=== PATIENT | male | born 1970 | race Caucasian/White ===

== ENCOUNTER 2019-11-06 19:57 | Inpatient (IN) ==
--- NOTE | 2019-11-06 21:47 | PROVIDER DOCUMENTATION ---
This chart was entered by Brianne Mendes Scribe, acting as scribe for Bar Harrison CRNP. HPI-Abdominal Pain/GI Problem - History of Present Illness-ABD Nature of Presenting Problems: 49 yom c/o 2 days of "worst heartburn of his life," no abd pain, no abd tenderness no nvd. 2 weeks ago, noticed urine was dark and orange in color and fingernails were turning orange. pt admits to shooting up meth and drinks 2 beers/day. <Bar Harrison - Last Filed: 11/06/19 21:47> <America Rocha - Last Filed: 11/07/19 00:52> - General Chief Complaint: Epigastric Pain Stated Complaint: CHEST PAIN/SOB/ARM NUMBNESS Time Seen by Provider: 11/06/19 20:58 Allergies/Adverse Reactions: Patient Allergies Allergy/AdvReac Type Severity Reaction Status Date / Time Penicillins Allergy Intermediate RASH Verified 06/08/18 19:56 Home Medications: Home Medication List Medication Instructions Recorded Confirmed Last Taken Type NK [No Home Medications] 06/07/18 06/08/18 Unknown History Review of Systems - Adult - REVIEW OF SYSTEMS - ADULT Constitutional: reports: no symptoms reported. denies: fever, fatique, night sweats Eyes: reports: no symptoms reported Ears, Nose, Mouth & Throat: reports: no symptoms reported Cardiovascular: reports: no symptoms reported Respiratory: reports: no symptoms reported Gastrointestinal: reports: see HPI, frequent heartburn. denies: abdominal pain, diarrhea, nausea, vomiting Genitourinary: reports: no symptoms reported Musculoskeletal: reports: no symptoms reported Integumentary: reports: no symptoms reported Neurological: reports: no symptoms reported Psychiatric: reports: no symptoms reported Endocrine: reports: no symptoms reported Hematologic/Lymphatic: reports: no symptoms reported Allergic/Immunologic: reports: no symptoms reported All Other Systems: Reviewed and Negative <Bar Harrison - Last Filed: 11/06/19 21:47> Past History - Adult - PAST MEDICAL HISTORY-ADULT Review of Records: reports: Nursing Assessment Review, Medications Reviewed, Social history reviewed & non-contributory. Major Childhood Illnesses: reports: denies history Cardiovascular: reports: denies history Respiratory: reports: denies history Gastrointestinal: reports: GERD Obstetrical/Gynecological: reports: denies history Genitourinary: reports: denies history Musculoskeletal: reports: denies history Neurological: reports: denies history Endocrine/Immune: reports: denies history Other Conditions: reports: denies history - PRIOR SURGERIES/PROCEDURES Surgical/Procedure History: reports: reviewed, not pertinent - IMMUNIZATION STATUS Childhood Immunizations: See Nurse Assessment Flu Vaccine: See Nurse Assessment - FAMILY HISTORY Family History: reviewed, not pertinent - SOCIAL HISTORY Smoking: cigarettes, greater than 1 pack/day Provider spent 3-5 mins advising pt. on dangers of tobacco.: Discussed manners to quit use, and f/u contacts for add'l counseling. Substance Use: alcohol, marijuana, amphetamines (meth) Alcohol Use Frequency: every day Number of drinks per typical drinking period:: 2 drinks <Bar Harrison - Last Filed: 11/06/19 21:47> Physical Exam-General - PHYSICAL EXAM-ADULT Initial Vital Signs Reviewed: Yes - CONSTITUTIONAL General Appearance: alert, no apparent distress. negative: lethargic, slow to respond, obtunded - EYES Eyes: PERRL/EOMI, scleral icterus. negative: pink conjunctivae, anisocoria, conjuctival exudate - GASTROINTESTINAL (ABDOMEN) Abdominal Exam: distended - MUSCULOSKELETAL Extremity: other (track marino both arms, does use meth) - SKIN Integumentary: normal turgor, warm/dry, jaundice (generalized body). negative: normal color, rash, swelling, tenderness - NEUROLOGIC Neurologic: grossly normal, no motor/sensory deficits - PSYCHIATRIC Psych/Mental Status: normal mood/affect, normal thought content, normal thought process, oriented x 3 <Bar Harrison - Last Filed: 11/06/19 21:47> Progress - PLAN OF CARE/RESULTS Progress/Plan/Lab Results: Vital Signs - 8 hr 11/06/19 19:57 Temperature 98.5 F Pulse Rate 99 H Respiratory Rate 15 Blood Pressure 115/80 O2 Sat by Pulse Oximetry 94 L Orders Category Date Time Status Nursing- Obtain EKG ONCE Care 11/06/19 21:08 Active CHEST-2 VIEWS [RAD] Stat Exams 11/06/19 21:[address] ABD/PELVIS W/IV CONT ONLY [CT] Stat Exams 11/06/19 21:08 Ordered AMMONIA [CHEM] Stat Lab 04/08/20 21:08 Ordered AMYLASE [CHEM] Stat Lab 11/06/19 21:08 Ordered CBC WITH ELECTRONIC DIFF [HEME] Stat Lab 11/06/19 21:08 Ordered COMPREHENSIVE METABOLIC PANEL [CHEM] Stat Lab 11/06/19 21:08 Ordered HEPATITIS PROFILE [HH] Stat Lab 11/06/19 21:08 Ordered LIPASE [CHEM] Stat Lab 11/06/19 21:08 Ordered PROTIME WITH INR [COAG] Stat Lab 11/06/19 21:08 Ordered PTT [COAG] Stat Lab 11/06/19 21:08 Ordered UA Reflex [URINALYSIS W/POSS RFLX CULT] [URINALYSIS] Lab 11/06/19 21:08 Uncollected Stat URINE DRUG SCREEN Stat Lab 11/06/19 21:08 Uncollected EKG [EKG] Stat Ther 11/06/19 21:08 Ordered - EKG 1 Time of EKG reading by physician:: 20:10 EKG Read and Signed by:: America Rocha EKG Interpretation (*Must complete 3 of following elements*): Normal (borderline) Rate: 84 (possible LAE ) Rhythm: NSR [place]illiner: normal QRS: normal [place] Interval: normal ST Wave: normal - CHANGE OF SHIFT REPORT (ED Provider) 1 Report Given and Care Transferred to:: Dr Rocha Time of Transfer: 21:47 Items Pending: Labs, CT/MRI Results <Bar Harrison - Last Filed: 11/06/19 21:47> - PLAN OF CARE/RESULTS Progress/Plan/Lab Results: Vital Signs - 8 hr 11/06/19 19:57 Temperature 98.5 F Pulse Rate 99 H Respiratory Rate 15 Blood Pressure 115/80 O2 Sat by Pulse Oximetry 94 L Laboratory Results - last 24 hr 11/06/19 11/06/19 11/06/19 21:08 21:08 21:08 WBC 7.14 RBC 4.52 L Hgb 13.5 L Hct 41.0 L MCV 90.7 MCH 29.9 MCHC 32.9 L RDW Std Deviation 17.7 H Plt Count 373 MPV 10.5 H Immature Gran % (Auto) 0.0 Neut % (Auto) 42.5 Lymph % (Auto) 38.5 [place] % (Auto) 13.9 H Eos % (Auto) 1.3 Baso % (Auto) 3.8 H Immature Gran # (Auto) 0.00 Neut # (Auto) 3.04 Lymph # (Auto) 2.75 [place] # (Auto) 0.99 H Eos # (Auto) 0.09 Baso # (Auto) 0.27 H PT INR PTT (Actin FS) Sodium 139 Potassium 4.9 Chloride 104 Carbon Dioxide 26 Anion Gap 9 BUN 13 Creatinine 0.9 Estimated GFR/1.73 m2 > 60 BUN/Creatinine Ratio 14 Glucose 74 Calculated Osmolality 276 Calcium 8.1 L Total Bilirubin 5.90 H AST 189 H ALT 583 H Alkaline Phosphatase 317 H Ammonia 31 Total Protein 6.6 Albumin 2.8 L Globulin 3.8 Albumin/Globulin Ratio 0.7 Amylase 48 Lipase 34 Urine Source Urine Color Urine Turbidity Urine pH Ur Specific [place] Urine Protein Ur Glucose (Stick) Ur Ketones (Stick) Urine Blood Urine Nitrite Urine Bilirubin Urobilinogen Dipstick Urine Leukocytes Urine WBC (Auto) Urine RBC (Auto) U Epithel Cells (Auto) Urine Bacteria (Auto) Urine Crystals Small Round Cells Urine Casts Urine Yeast-like Cells Urine Opiates Screen Ur Oxycodone Screen Ur Methadone, Qual Ur Barbiturates Screen Ur Phencyclidine Scrn Ur Amphetamines Screen U Benzodiazepines Scrn Urine Cocaine Screen U Cannabinoids Screen 11/06/19 11/06/19 11/06/19 21:08 22:39 22:39 WBC RBC Hgb Hct MCV MCH MCHC RDW Std Deviation Plt Count MPV Immature Gran % (Auto) Neut % (Auto) Lymph % (Auto) [place] % (Auto) Eos % (Auto) Baso % (Auto) Immature Gran # (Auto) Neut # (Auto) Lymph # (Auto) [place] # (Auto) Eos # (Auto) Baso # (Auto) PT 12.5 INR 0.93 PTT (Actin FS) 29.4 Sodium Potassium Chloride Carbon Dioxide Anion Gap BUN Creatinine Estimated GFR/1.73 m2 BUN/Creatinine Ratio Glucose Calculated Osmolality Calcium Total Bilirubin AST ALT Alkaline Phosphatase Ammonia Total Protein Albumin Globulin Albumin/Globulin Ratio Amylase Lipase Urine Source CLEAN CATCH Urine Color YELLOW Urine Turbidity CLEAR Urine pH 6.5 Ur Specific [place] 1.020 Urine Protein TRACE A Ur Glucose (Stick) NEGATIVE Ur Ketones (Stick) NEGATIVE Urine Blood NEGATIVE Urine Nitrite NEGATIVE Urine Bilirubin MODERATE A Urobilinogen Dipstick 2 A Urine Leukocytes NEGATIVE Urine WBC (Auto) <10 Urine RBC (Auto) <10 U Epithel Cells (Auto) <10 Urine Bacteria (Auto) NEGATIVE Urine Crystals CA OXALATE PRESENT Small Round Cells Not Reportable Urine Casts Not Reportable Urine Yeast-like Cells Not Reportable Urine Opiates Screen NONE DETECTED Ur Oxycodone Screen NONE DETECTED Ur Methadone, Qual NONE DETECTED Ur Barbiturates Screen NONE DETECTED Ur Phencyclidine Scrn NONE DETECTED Ur Amphetamines Screen NONE DETECTED U Benzodiazepines Scrn NONE DETECTED Urine Cocaine Screen NONE DETECTED U Cannabinoids Screen PRESUMPTIVE POSITIVE A Orders Category Date Time Status Nursing- Obtain EKG ONCE Care 11/06/19 21:08 Active CHEST-2 VIEWS [RAD] Stat Exams 11/06/19 21:[address] ABD/PELVIS W/IV CONT ONLY [CT] Stat Exams 11/06/19 22:00 Taken AMMONIA [CHEM] Stat Lab 11/06/19 21:08 Completed AMYLASE [CHEM] Stat Lab 11/06/19 21:08 Completed CBC WITH ELECTRONIC DIFF [HEME] Stat Lab 11/06/19 21:08 Completed COMPREHENSIVE METABOLIC PANEL [CHEM] Stat Lab 11/06/19 21:08 Completed HEPATITIS PROFILE [HH] Stat Lab 11/06/19 21:08 Received LIPASE [CHEM] Stat Lab 11/06/19 21:08 Completed PROTIME WITH INR [COAG] Stat Lab 11/06/19 21:08 Completed PTT [COAG] Stat Lab 11/06/19 21:08 Completed UA Reflex [URINALYSIS W/POSS RFLX CULT] [URINALYSIS] Lab 11/06/19 22:39 Completed Stat URINE DRUG SCREEN Stat Lab 11/06/19 22:39 Completed URINE MANUAL MICROSCOPIC [URINALYSIS] Stat Lab 11/06/19 22:39 Completed EKG [EKG] Stat Ther 11/06/19 21:08 Draft Result Diagrams: 11/06/19 21:08 11/06/19 21:08 - REASSESSMENT Reassessment #1 Time Reassessed: 22:00 Status: other (Assumed care of this patient at shift change. Awaiting labs and dispo.) - CONSULTS/PCP/HOSPITALIST Notification #1 *Consult/PCP/Hospitalist*: Hospitalist Time Discussed: 00:50 Consult Disposition: Admit <America Rocha - Last Filed: 11/07/19 00:52> Departure <Bar Harrison - Last Filed: 11/06/19 21:47> - Departure Date of Disposition Decision: 11/07/19 Time of Disposition Decision: 00:51 Certified Medical Emergency: Emergent - Critical Care Note This patient required my direct & personal management of CC.: No <America Rocha - Last Filed: 11/07/19 00:52> - Departure DIAGNOSIS: Hepatitis, Jaundice Disposition: ADMITTED INPATIENT 09 Condition: Stable Referrals and Follow-Ups: None,PCP [Primary Care Provider] - Attestation - Physician/ HARRIET Attestation Patient care was provided by Advanced Practice Provider:: Yes Advanced Practice Provider:: Bar Harrison Advanced Practice Provider documentation review:: The Mid-level provider documentation, treatment plan and medical decision making was reviewed by the physician who agrees with all treatment and medical decision making by the MLP. The physician spent face to face time with patient:: No Advanced Practice Provider documentation review:: Supervising physician onsite and consulted in the evaluation and care of this patient. The physician did not have a face to face encounter with the patient. <Bar Harrison - Last Filed: 11/06/19 21:47> - Physician/ HARRIET Attestation Patient care was provided by Advanced Practice Provider:: Yes Advanced Practice Provider documentation review:: The Mid-level provider documentation, treatment plan and medical decision making was reviewed by the physician who agrees with all treatment and medical decision making by the MLP. The physician spent face to face time with patient:: Yes Advanced Practice Provider documentation review:: Supervising physician onsite and consulted in the evaluation and care of this patient. The physician did have a face to face encounter with the patient. - Physician/ HARRIET Attestation #2 Advanced Practice Provider documentation review:: Supervising physician onsite and consulted in the evaluation and care of this patient. The physician did have a face to face encounter with the patient. <America Rocha - Last Filed: 11/07/19 00:52> This chart was documented by the indicated scribe, (Brianne Mendes Scribe) and accurately reflects the services I performed and decisions made by , Bar Harrison CRNP, as attested by the provider's signature.
[2019-11-06 22:25] LABS: BASO# 0.27 X1000 (0.0-0.2); BASO% 3.8 % (0.0-0.8); EOS# 0.09 X1000 (0.0-0.7); EOS% 1.3 % (0.0-10.0); HEMOGLOBIN 13.5 g/dL (14.0-18.0); LYMPH# 2.75 X1000 (1.2-3.4); LYMPH% 38.5 % (20.5-51.1); MCH 29.9 PG (27-31); MCHC 32.9 g/dL (33-37); MCV 90.7 FL (81-99); MONO# 0.99 X1000 (0.11-0.59); MONO% 13.9 % (1.7-9.3); MPV 10.5 FL (7.4-10.4); NEUT# 3.04 X1000 (1.4-6.5); NEUT% 42.5 % (42.2-75.2); PLT 373 X1000 (130-400); RBC 4.52 XMIL (4.7-6.1); RDW 17.7 % (11.5-14.5); WBC 7.14 X1000 (4.8-10.8)
[2019-11-06 22:27] LABS: INR 0.93; PROTIME 12.5 Seconds (11.0-16.0)
[2019-11-06 22:28] LABS: PTT 29.4 Seconds (22.3-41.8)
[2019-11-06 22:48] LABS: AGAP 9; ALB/GLOB RATIO 0.7; ALBUMIN 2.8 g/dL (3.5-5.0); ALKALINE PHOSPHATASE 317 U/L (32-122); AMYLASE 48 U/L (20-200); BUN 13 mg/dL (8-22); CALCIUM 8.1 mg/dL (8.8-10.2); CHLORIDE 104 mmol/L (98-107); COSMO 276; CREATININE 0.9 mg/dL (0.7-1.2); ESTIMATED GFR > 60; GLUCOSE 74 mg/dL (70-104); GOT 189 U/L (10-34); GPT 583 U/L (10-44); LIPASE 34 U/L (13-60); POTASSIUM 4.9 mmol/L (3.5-5.1); SODIUM 139 mmol/L (136-145); TCO2 26 mmol/L (25-35); TOTAL PROTEIN 6.6 g/dL (6.3-8.3)
[2019-11-06 23:14] LABS: URINE SOURCE CLEAN CATCH
[2019-11-06 23:18] LABS: BILIRUBIN URINE MODERATE (NEGATIVE); BLOOD URINE NEGATIVE (NEGATIVE); COLOR YELLOW; GLUCOSE URINE NEGATIVE (NEGATIVE); KETONE URINE NEGATIVE (NEGATIVE); LEUKOCYTES URINE NEGATIVE (NEGATIVE); NITRITE URINE NEGATIVE (NEGATIVE); PH URINE 6.5; PROTEIN URINE TRACE mg/dL (NEGATIVE); TURBIDITY URINE CLEAR (CLEAR); UROBILINOGEN URINE 2 mg/dL (NORMAL)
--- NOTE | 2019-11-06 23:20 | EKG Report ---
Test Performed on : 11/06/2019 8:05:47 PM Test Reason : CP Blood Pressure : / mmHG Vent. Rate : 084 BPM Atrial Rate : 084 BPM P-R Int : 130 ms QRS Dur : 088 ms QT Int : 364 ms P-R-T Axes : 067 053 038 degrees QTc Int : 430 ms Normal sinus rhythm. Possible Left atrial enlargement Borderline ECG When compared with ECG of 06-DEC-2017 14:36, No significant change was found Unconfirmed Result
[2019-11-06 23:21] LABS: UR EPITHELIAL CELLS <10 /HPF (<10); URINE BACTERIA NEGATIVE /HPF; URINE RBC <10 /HPF (<10); URINE WBC <10 /HPF (<10)
[2019-11-06 23:33] LABS: URINE CRYSTALS CA OXALATE PRESENT
[2019-11-07 00:08] LABS: UR AMPHETAMINES QUAL NONE DETECTED (NONE DETECT); UR BARBITUATES QUAL NONE DETECTED (NONE DETECT); UR BENZODIAZEPIN QUAL NONE DETECTED (NONE DETECT); UR CANNABINOIDS QUAL PRESUMPTIVE POSITIVE (NONE DETECT); UR COCAINE QUAL NONE DETECTED (NONE DETECT); UR METHADONE QUAL NONE DETECTED (NONE DETECT); UR OPIATES QUAL NONE DETECTED (NONE DETECT); UR OXYCODONE QUAL NONE DETECTED (NONE DETECT); UR PCP QUAL NONE DETECTED (NONE DETECT)
[2019-11-07] MEDS ORDERED: SODIUM CHLORIDE 0.9% INJ PRN (03:52)
[2019-11-07] MEDS ORDERED: NS 1,000 ML IV SCH (03:52)
[2019-11-07] MEDS ORDERED: PHENERGAN IV PRN (03:52)
[2019-11-07] MEDS: LOVENOX SUBQ SCH (04:36)
--- NOTE | 2019-11-07 05:36 | HISTORY AND PHYSICAL ---
CHIEF COMPLAINT: Heartburn of 3 days duration. HISTORY OF PRESENTING COMPLAINT: The patient is a 49-year-old male with no known past medical history, who presented with heartburn of 3 days duration. The patient describes heartburn, which has worsened over the last 3 days. He says the heartburn is like a burning sensation in the epigastric and left upper quadrant area of the abdomen. It is worse without food and he gets relief of the pain with food. It is nonradiating and nonpleuritic pain. He denies any fever, nausea, vomiting. Denies any diarrhea or constipation. Denies any urinary symptoms. The patient states he did not know that he has yellowness of the skin and of his eyes, although this was evident on seeing the patient in the examination room. Of note, patient states he does use IV drugs. He uses IV methamphetamine and occasionally he also smokes methamphetamine as well. His last IV methamphetamine use was like 2 weeks ago. He denies sharing of needles despite his history of IV drug use. He denies any previous liver problems. Denies any weight loss. Of note, patient says he was recently treated for bronchitis with antibiotic, he is unclear the name of the antibiotic, but he took it for 3 days and stopped because he was not getting any improvement with antibiotics. The antibiotics was last taken in the last 10 days. He denies any other new medications. Denies any use of any herbal medications. Denies any use of regular Tylenol. In the ER, the patient had blood work done that shows markedly elevated AST, ALT, and bilirubin as well and the hospitalist team was called to admit the patient. ALLERGIES: Penicillin. HOME MEDICATIONS: None. PAST MEDICAL HISTORY: No significant past medical history. SOCIAL HISTORY: Significant smoking of 30 pack years. The patient drinks 2 to 3 beers per day. He has been doing this for the last 3 years. FAMILY HISTORY: No family history of chronic liver disease or any liver disease. He says his Mother has a history of diabetes. Father history of heart condition. REVIEW OF SYSTEM: Ten point review of systems done, is negative except as stated in the HPI. PHYSICAL EXAMINATION: VITALS: Blood pressure was 115/80, temperature 98.5 degrees, pulse rate 99, respiratory 15, O2 saturation is 94% on room air. GENERAL: A middle-aged man in no acute respiratory distress. HEENT: Not pale. Icteric, and there is mildly moist oral mucosa. CARDIOVASCULAR: S1, S2 heard. No murmurs, rubs, or gallops. RESPIRATORY: Good air entry bilaterally. No wheeze. No crepitations. No added sound. ABDOMEN: No area of tenderness. Bowel sounds normoactive. No organomegaly appreciated. EXTREMITIES: No bilateral pedal edema noted. SKIN: Icteric skin noted diffusely. NEURO: Alert, oriented x3. No gross focal neurological abnormalities noted. LABS: WBC 7.14, hemoglobin 13.5, hematocrit 41.0, platelet count is 373,000. INR is 0.93. Sodium 139, potassium 4.9, chloride 104, bicarb 26, anion gap 9, BUN 13, creatinine 0.9. Glucose 74, calcium 8.1, total bilirubin 5.9, AST 189, ALT 583, alkaline phosphatase is 317, albumin 2.8. UA essentially negative except for calcium oxalate crystals noted. On the UDS, it is positive for cannabinoids. Interestingly, negative for amphetamine. IMAGING: Chest x-ray shows no significant cardiopulmonary process noted. CT Abdomen - Awaiting results EKG shows normal sinus rhythm with no significant ST, T wave changes. ASSESSMENT: A 49-year-old with history of IV drug use, presents with epigastric and left upper quadrant burning, nonradiating pain which is associated with food. The patient's workup showed abnormal liver enzymes and pending hepatitis viral panel results. 1. Acute hepatitis 2. Substance use disorder. PLAN: 1. Hepatitis viral panel already taken. We will follow up on results. Suspect this may be a viral hepatitis causing the acute hepatitis picture. Also, other possibilities include it could be drug-induced. Patient is noted to have used an antibiotic recently. Abnormal liver enzymes also show possible cholestatic pattern as well, given mildly elevated alkaline phosphatase. We will do a direct bilirubin to rule out contributed hyperbilirubinemia. Awaiting CT abdomen and pelvis results as well. We will put order in for a liver ultrasound with Doppler to rule out any thrombosis that may be complicating the picture for better visualization of the liver architecture. Treatment to be based on results of viral hepatitis panel workup. Counseled the patient on the need to reduce drug use, as this most likely is a complicating factor. 2. DVT prophylaxis is Lovenox. 3. Code Status: Full code. 4. Disposition: We will admit the patient inpatient. We will monitor the CMP. Will discharge when medically stable. MONTSE
[2019-11-07 05:55] LABS: HEMOGLOBIN 13.3 g/dL (14.0-18.0); MCH 30.1 PG (27-31); MCHC 33.3 g/dL (33-37); MCV 90.5 FL (81-99); RBC 4.42 XMIL (4.7-6.1); WBC 6.6 X1000 (4.8-10.8)
[2019-11-07 06:45] LABS: AGAP 11; ALBUMIN 2.9 g/dL (3.5-5.0); ALKALINE PHOSPHATASE 297 U/L (32-122); BUN 14 mg/dL (8-22); CALCIUM 8.5 mg/dL (8.8-10.2); CHLORIDE 102 mmol/L (98-107); CK TOTAL 23 U/L (24-204); COSMO 275; CREATININE 0.8 mg/dL (0.7-1.2); ESTIMATED GFR > 60; GLUCOSE 113 mg/dL (70-104); GOT 162 U/L (10-34); GPT 507 U/L (10-44); POTASSIUM 4.2 mmol/L (3.5-5.1); SODIUM 137 mmol/L (136-145); TCO2 24 mmol/L (25-35); TOTAL PROTEIN 5.9 g/dL (6.3-8.3)
--- NOTE | 2019-11-07 07:12 | Diag Imaging Result Doc PS360 ---
EXAM: CHEST-2 VIEWS HISTORY: SOB TECHNIQUE: Two views COMPARISON: 12/05/2017 FINDINGS: The lungs are well expanded. The heart is not enlarged. The vessels are not distended. There are no infiltrates. No pleural effusions. There is a granuloma in the left lower lobe. IMPRESSION: No acute abnormality. Electronically signed by Dalton Pace 11/07/2019 7:10 AM
--- NOTE | 2019-11-07 07:48 | Diag Imaging Result Doc PS360 ---
EXAM: CT ABD/PELVIS W/IV CONT ONLY INDICATION: jaundice TECHNIQUE: This exam was performed using automated exposure control, adjustment of mA or kV according to patient size, and/or use of iterative reconstruction technique. COMPARISON: None. FINDINGS: The liver appears grossly normal. The gallbladder is contracted. There is subtle fluid around the gallbladder that is nonspecific. It would be difficult to completely exclude mild cholecystitis. Please correlate clinically. There is no evidence of biliary dilatation. The spleen and pancreas are unremarkable. There are bilateral low dense adrenal lesion that both measure up to 2.4 cm, nonspecific but statistically very likely adrenal adenomas. The kidneys and urinary bladder are unremarkable. The appendix is normal. There is minimal equalization of the contents of a loop of small bowel in the right lower quadrant. This can be associated with slow bowel transit or bacterial overgrowth. There is no obstructive bowel pattern. There is no evidence of bowel wall thickening. The remainder of the GI tract is essentially unremarkable. No free abdominal gas is identified. There is no evidence of acute osseous abnormality. IMPRESSION: 1.Contracted gallbladder with trace surrounding fluid. Although somewhat doubtful, mild cholecystitis cannot completely be excluded. 2.Bilateral low dense adrenal lesions, nonspecific but very likely represent adrenal adenomas. 3.Minimal equalization of a loop of small bowel in the right lower quadrant. Although this may be of no significance, can be seen with slow bowel transit or bacterial overgrowth. Electronically signed by Ji Mendes 11/07/2019 7:45 AM
--- NOTE | 2019-11-07 08:19 | EKG Report ---
Test Performed on : 11/07/2019 00:13:12 AM Test Reason : CP Blood Pressure : / mmHG Vent. Rate : 088 BPM Atrial Rate : 088 BPM P-R Int : 136 ms QRS Dur : 082 ms QT Int : 344 ms P-R-T Axes : 001 084 030 degrees QTc Int : 416 ms Normal sinus rhythm. Normal ECG When compared with ECG of 06-NOV-2019 20:05, (Unconfirmed) No significant change was found Unconfirmed Result
[2019-11-07] MEDS: PRILOSEC PO SCH (10:14)
--- NOTE | 2019-11-07 10:15 | Diag Imaging Result Doc PS360 ---
EXAM: US ABDOMEN-COMPLETE HISTORY: abnormal liver enzymes TECHNIQUE: Abdominal ultrasound COMPARISON: Recent CT FINDINGS: Normal pancreatic head. The body and tail are obscured. No abdominal aortic aneurysm. Normal inferior vena cava. No focal hepatic abnormality. No abnormality to the gallbladder. No stones. The common bile duct measures 3 mm. Normal spleen. No ascites. Normal kidneys. No hydronephrosis. IMPRESSION: Normal abdominal ultrasound Electronically signed by Dalton Pace 11/07/2019 10:13 AM
[2019-11-07 13:54] LABS: HEPATITIS PROFILE ACUTE SEE COMMENTS
--- NOTE | 2019-11-07 14:06 | PROGRESS NOTE ---
DATE: 11/07/2019 Mr. López is a 49-year-old male who presented on 11/07/2019, early this morning, with heartburn of 3 days' duration. PAST MEDICAL HISTORY: 1. History of heartburn for 3 days. Describes heartburn which has worsened over the last 3 days. Sensation of epigastric left upper quadrant area abdominal discomfort, worse with food. Admitted with acute hepatitis. He has a history of IV drugs, with epigastric and left upper quadrant burning. Appears probably hepatitis A. 2. Substance use disorder. Waiting on results of hepatitis profile. Liver enzymes were elevated, transaminases. AST was 189, ALT 583. He has come down a little bit. His chlamydia and GC were nondetected. REVIEW OF HIS ORDERS: Getting normal saline at 100 mL an hour. His urine drug screen positive for cannabinoids. cc: Blake Chun MD
[2019-11-08] MEDS: LOVENOX SUBQ SCH (03:24)
[2019-11-08] MEDS: PRILOSEC PO SCH (08:36)
--- NOTE | 2019-11-08 11:18 | PROGRESS NOTE ---
DATE: 11/08/2019 SUBJECTIVE: The patient seems to be feeling better compared with yesterday. His abdominal ultrasound is basically normal. His abdomen and pelvis CT scan showed a contracted gallbladder with trace surrounding fluid, although somewhat doubtful. Mild cholecystitis cannot be completely excluded. We also have a positive result for hepatitis A. OBJECTIVE: Vital Signs: Temperature 98.7 degrees, pulse 65, respiratory rate 17, blood pressure 114/76, and oxygen saturation 99 percent on room air. HEENT: Head normocephalic. Icteric sclerae. Neck: Supple. No JVD. No masses. Central trachea. Chest: Clear to auscultation. No wheezing. No rales. Abdomen: Soft. Some discomfort to palpation at the level of the epigastric and right upper quadrant. Extremities: No edema. No clubbing. No cyanosis. Skin: Jaundiced. Neurological: The patient is awake and alert. He is oriented. LABORATORY: WBC 6.6, hemoglobin 13.3, hematocrit 40, and platelets 352,000. Sodium 137, potassium 4.2, chloride 102, bicarbonate 24, BUN 14, creatinine 0.8, glucose 113, calcium 8.5, bilirubin 5.4, AST 162, ALT 507, alkaline phosphatase 297, and albumin 2.9. ASSESSMENT AND PLAN: 1. Acute hepatitis A infection. This is likely due to IV drug use. I had a large conversation with this patient about drug use. Also, I told him that he needs to avoid alcohol for more than 3 months and also some medications including Tylenol. He seems to understand and as per the patient, he is not going to do any more drugs. 2. Gastroesophageal reflux disease. Continue with omeprazole. 3. Deep vein thrombosis prophylaxis with Lovenox. Coagulation panel is normal. 4. Drug abuse especially IV drug use. This patient has been highly advised against IV drug use. I will continue with daily cessation education. Also, I told the patient that he cannot drink alcohol for more than 3 weeks. Much better if he completely stops both. cc: Ray Saba MD
[2019-11-08 14:25] VITALS: BP 122/74
== END 2019-11-08 18:46 | disposition left against medical advice (07) | DRG 443 ==
LOC: ED 19:57 → SUATTDRO 11-07 03:35 → 3N 11-07 03:35
PROVIDERS: ATTEND Internal Medicine